=== PATIENT | female | born 1995 | race Caucasian/White ===

== ENCOUNTER 2016-05-28 22:28 | Observation (INO) | payer MEDICAID ==
[~2016-05-28] VITALS: Ht 162.6 cm; Wt 74.8 kg
[2016-05-28 23:50] LABS: Urine RBC None Seen /hpf (0 - 4)
[2016-05-28 23:56] LABS: Basophils # (auto) 0.2 uL; Basophils % (auto) 1.5 % (0.0-2.0); Eosinophils # (auto) 0 uL; Eosinophils % (auto) 0.2 % (0.0-7.0); Hematocrit 39.9 % (36.0-46.0); Lymphocytes # (auto) 1.8 uL; Lymphocytes % (auto) 15.8 % (10.0-50.0); Mean Corpuscular Hemoglobin 27.9 pg (28.0-32.0); Mean Corpuscular Hgb Conc. 32.6 g/dL (32.0-36.0); Mean Corpuscular Volume 85.4 fL (80.0-100.0); Mean Platelet Volume 8.1 fL (7.4-10.4); Monocytes # (auto) 1.2 uL; Monocytes % (auto) 11.1 % (0.0-12.0); Neutrophils # (auto) 7.9 uL; Neutrophils % (auto) 71.4 % (37.0-80.0); Platelet Count (auto) 371 10^3/uL (140-450); White Blood Cell 11.1 10^3/uL (4.4-10.8)
[2016-05-29 00:04] LABS: Albumin 4.1 g/dL (3.4-5.0); Anion Gap 11 (5-15); Aspartate Aminotransferase 15 U/L (15-37); BUN/Creatinine Ratio 12.3; Blood Urea Nitrogen 10 mg/dL (7-18); Calcium 8.8 mg/dL (8.5-10.1); Carbon Dioxide 25 mmol/L (21-32); Chloride 104 mmol/L (98-107); GFR African American 117 mL/min; GFR Non-African American 97 mL/min; Glucose 74 mg/dL (74-106); Magnesium 2.1 mg/dL (1.6-2.6); Potassium 3.5 mmol/L (3.5-5.1); Sodium 140 mmol/L (136-145)
[2016-05-29 00:04] LABS: Urine Bilirubin Negative (Negative); Urine Blood Negative /uL (Negative); Urine Color Colorless (Yellow); Urine Glucose Normal (Normal); Urine Ketone TRACE (Negative); Urine Nitrite Negative (Negative); Urine Squamous Epithelial Cell FEW /hpf (<5); Urine Urobilinogen Normal (Negative)
[2016-05-29 00:05] LABS: INR 1.07 (0.9-1.15)
[2016-05-29 00:08] LABS: Alkaline Phosphatase 103 U/L (45-117); Bilirubin, Total 0.8 mg/dL (0.2-1.0); Total Protein 7.7 g/dL (6.4-8.2)
[2016-05-29] MEDS ORDERED: OLANZapine 5 MG TAB PO ONE (03:45)
[2016-05-29] MEDS ORDERED: OLANZapine 5 MG TAB PO PRN (08:45)
[2016-05-29 10:48] VITALS: BP 97/56
== END 2016-05-29 10:53 | disposition short-term general hospital (02) | DRG 751 ==
LOC: ER 22:28 → EDBD 22:28 → OVERFLOW 23:50 → ER 05-29 10:53
PROVIDERS: ADMIT Emergency Medicine; ATTEND Emergency Medicine
DX: F23 Brief psychotic disorder (principal); F32.1 Major depressive disorder, single episode, moderate; Z82.49 Family history of ischemic heart disease and other diseases of the circulatory system; Z83.3 Family history of diabetes mellitus; R53.1 Weakness; F41.9 Anxiety disorder, unspecified
CPT/HCPCS: 36415; 71010; 80053; 80320; 81001; 81025; 83735; 84484; 85025; 85379; 85610; 85730; 93005; 99285; G0378; G0434

== ENCOUNTER 2017-07-28 05:01 | Inpatient (IN) | payer MEDICAID ==
[~2017-07-28] VITALS: Ht 160 cm; Wt 63.0 kg
[2017-07-28] MEDS ORDERED: SODIUM CHLORIDE 0.9% 1,000 ML IVB ONE (06:26)
[2017-07-28] MEDS ORDERED: ACETYLCYSTEINE ORAL for CIN 20%(200MG/ML) 4ML PO ONE ×2 (07:00→11:15)
[2017-07-28 07:38] LABS: Basophils # (auto) 0 uL; Basophils % (auto) 0.7 % (0.0-2.0); Eosinophils # (auto) 0 uL; Eosinophils % (auto) 0.6 % (0.0-7.0); Hematocrit 38.4 % (36.0-46.0); Hemoglobin 12.7 g/dL (12.2-16.2); Lymphocytes # (auto) 1.6 uL; Lymphocytes % (auto) 23.3 % (10.0-50.0); Mean Corpuscular Hemoglobin 30.4 pg (28.0-32.0); Mean Corpuscular Volume 91.9 fL (80.0-100.0); Monocytes # (auto) 0.9 uL; Monocytes % (auto) 13.2 % (0.0-12.0); Neutrophils # (auto) 4.2 uL; Neutrophils % (auto) 62.2 % (37.0-80.0); Nucleated Red Blood Cells % 0.1 %; Platelet Count (auto) 258 10^3/uL (140-450); Red Blood Cells 4.18 10^6/uL (4.0-5.20); Red Cell Distribution Width 12.3 % (11.8-14.3); White Blood Cell 6.7 10^3/uL (4.4-10.8)
[2017-07-28 07:56] LABS: Salicylate < 1.7 mg/dL (2.8-20.0)
[2017-07-28 07:57] LABS: Alanine Aminotransferase 15 U/L (13-56); Albumin 3.1 g/dL (3.4-5.0); Anion Gap 9 (5-15); Aspartate Aminotransferase 11 U/L (15-37); BUN/Creatinine Ratio 15.1; Blood Alcohol < 3.0 mg/dL (0-5); Blood Urea Nitrogen 13 mg/dL (7-18); Calcium 7.8 mg/dL (8.5-10.1); Carbon Dioxide 23 mmol/L (21-32); Chloride 112 mmol/L (98-107); GFR African American 108 mL/min; GFR Non-African American 89 mL/min; Glucose 93 mg/dL (74-106); Magnesium 1.7 mg/dL (1.6-2.6); Potassium 4.5 mmol/L (3.5-5.1); Sodium 144 mmol/L (136-145)
[2017-07-28 08:03] LABS: Urine Bacteria FEW /hpf (None Seen); Urine Blood Negative /uL (Negative); Urine Hyaline Cast MOD /lpf (0 - 2); Urine Mucus FEW (None Seen); Urine WBC 9 /hpf (0 - 5)
[2017-07-28 08:04] LABS: Alkaline Phosphatase 69 U/L (45-117); Bilirubin, Total 0.3 mg/dL (0.2-1.0); Total Protein 6.3 g/dL (6.4-8.2)
[2017-07-28 08:08] LABS: INR 1.01 (0.9-1.15); Partial Thromboplastin Time 25.2 sec (23.78-33.04); Prothrombin Time 10.8 sec (9.27-12.13)
[2017-07-28 08:12] LABS: Acetaminophen 449.9 ug/mL (10-30)
[2017-07-28] MEDS ORDERED: ONDANSETRON HCL 4 MG/2 ML VIAL ONE (08:20)
[2017-07-28] MEDS ORDERED: ONDANSETRON HCL 4 MG/2 ML VIAL IV ONE (08:30)
[2017-07-28 08:36] LABS: Amphetamine Screen, Urine NEGATIVE (NEGATIVE); Barbiturate Scree,Urine NEGATIVE (NEGATIVE); Benzodiazephine Screen, Urine NEGATIVE (NEGATIVE); Cannabinoid Screen, Urine POSITIVE (NEGATIVE); Cocaine Screen, Urine NEGATIVE (NEGATIVE); Opiate Scree,Urine NEGATIVE (NEGATIVE); Phencyclidine Screen, Urine NEGATIVE (NEGATIVE)
[2017-07-28 10:33] LABS: BUN/Creatinine Ratio 12.5; Calcium 7.5 mg/dL (8.5-10.1); Potassium 4.4 mmol/L (3.5-5.1)
[2017-07-28 10:36] LABS: Bilirubin, Total 0.3 mg/dL (0.2-1.0); Total Protein 6.1 g/dL (6.4-8.2)
[2017-07-28] MEDS ORDERED: SODIUM CHLORIDE 0.9% 1,000 ML IV ONE ×2 (11:12)
[2017-07-28] MEDS ORDERED: D5W 5% IV ONE ×2 (11:15→12:15)
[2017-07-28] MEDS ORDERED: ACETYLCYSTEINE IV ONE ×2 (11:15→12:15)
[2017-07-28] MEDS ORDERED: SODIUM BICARBONATE 8.4% INJ 50ML SYRINGE ONE (11:24)
[2017-07-28] MEDS ORDERED: SODIUM BICARBONATE 8.4 % INJ 50ML VIAL IV ONE ×2 (11:30)
[2017-07-28] MEDS ORDERED: PROMETHAZINE HCL 25 MG/ML 1ML ONE (12:42)
[2017-07-28] MEDS ORDERED: PROMETHAZINE HCL 25 MG/ML 1ML IV ONE (12:45)
[2017-07-28] MEDS ORDERED: LORazepam 2MG/ML-1ML VIAL IV PRN (13:45)
[2017-07-28] MEDS: SODIUM CHLORIDE 0.9% 1,000 ML IV SCH ×2 (13:49→22:34)
[2017-07-28] MEDS ORDERED: cefTRIAXone 1GM/10ml IVPUSH 10 ML IV ONE (14:00)
[2017-07-28] MEDS ORDERED: NITROGLYCERIN 0.4 MG SL TAB SL PRN (14:00)
[2017-07-28] MEDS ORDERED: MORPHINE SULF INJ 2 MG/ML SYRINGE 1ML IV PRN ×2 (14:00)
[2017-07-28] MEDS ORDERED: TEMAZEPAM 15 MG CAP PO PRN (14:00)
[2017-07-28] MEDS ORDERED: ACETYLCYSTEINE 20%(200MG/ML) SOLN 30ML PO ONE (14:00)
[2017-07-28] MEDS: ONDANSETRON HCL 4 MG/2 ML VIAL IV PRN (14:32)
[2017-07-28] MEDS: D5W 5% IV SCH (17:00)
[2017-07-28] MEDS: ACETYLCYSTEINE IV SCH (17:00)
[2017-07-28] MEDS: BOOST PLUS 8 ounce PO SCH (18:15)
[2017-07-28] MEDS: FAMOTIDINE 20 MG TAB PO SCH (22:34)
[2017-07-29 06:25] LABS: Basophils # (auto) 0 uL; Basophils % (auto) 0.4 % (0.0-2.0); Eosinophils # (auto) 0 uL; Hematocrit 34.9 % (36.0-46.0); Hemoglobin 11.8 g/dL (12.2-16.2); Lymphocytes # (auto) 2.1 uL; Lymphocytes % (auto) 22.1 % (10.0-50.0); Mean Corpuscular Hemoglobin 30.7 pg (28.0-32.0); Mean Corpuscular Hgb Conc. 33.9 g/dL (32.0-36.0); Mean Corpuscular Volume 90.7 fL (80.0-100.0); Monocytes % (auto) 10.4 % (0.0-12.0); Neutrophils # (auto) 6.4 uL; Neutrophils % (auto) 67.1 % (37.0-80.0); Nucleated Red Blood Cells % 0.1 %; Platelet Count (auto) 241 10^3/uL (140-450); Red Blood Cells 3.84 10^6/uL (4.0-5.20); Red Cell Distribution Width 12.5 % (11.8-14.3); White Blood Cell 9.6 10^3/uL (4.4-10.8)
[2017-07-29] MEDS: BOOST PLUS 8 ounce PO SCH ×3 (08:26→18:00)
[2017-07-29] MEDS ORDERED: DIVA500T4 PO (08:48)
[2017-07-29 09:00] VITALS: BP 120/65
[2017-07-29] MEDS: cefTRIAXone 1GM/10ml IVPUSH 10 ML IV SCH (09:00)
[2017-07-29 09:04] LABS: Albumin 2.8 g/dL (3.4-5.0); BUN/Creatinine Ratio 4.9; Calcium 8.2 mg/dL (8.5-10.1); Potassium 3.3 mmol/L (3.5-5.1)
[2017-07-29 09:07] LABS: Bilirubin, Total 0.7 mg/dL (0.2-1.0); Total Protein 5.8 g/dL (6.4-8.2)
[2017-07-29] MEDS: FAMOTIDINE 20 MG TAB PO SCH ×2 (10:00→21:39)
[2017-07-29] MEDS: MULTIPLE VITAMIN TAB PO SCH (10:00)
[2017-07-29] MEDS ORDERED: POTASSIUM CHL 10 Meq TABLET PO ONE (10:30)
[2017-07-29 11:45] VITALS: BP 105/63
[2017-07-29] MEDS: SODIUM CHLORIDE 0.9% 1,000 ML IV SCH ×3 (12:49→23:10)
[2017-07-29 13:00] VITALS: BP 115/61
[2017-07-29] MEDS: ACETYLCYSTEINE IV SCH (13:00)
[2017-07-29] MEDS: D5W 5% IV SCH (13:00)
[2017-07-29] MEDS ORDERED: LEV50T GT (14:11)
[2017-07-29] MEDS ORDERED: SERT25TA84 PO (14:11)
[2017-07-29] MEDS ORDERED: ARIP2TAB PO (14:11)
[2017-07-29 22:00] VITALS: BP 120/79
[2017-07-29] MEDS: ONDANSETRON HCL 4 MG/2 ML VIAL IV PRN (23:11)
[2017-07-30 05:00] VITALS: BP 115/68
[2017-07-30 06:02] LABS: Basophils # (auto) 0 uL; Basophils % (auto) 0.7 % (0.0-2.0); Eosinophils # (auto) 0 uL; Eosinophils % (auto) 0.8 % (0.0-7.0); Hematocrit 34.1 % (36.0-46.0); Hemoglobin 11.6 g/dL (12.2-16.2); Lymphocytes # (auto) 2.3 uL; Lymphocytes % (auto) 35.3 % (10.0-50.0); Mean Corpuscular Hemoglobin 30.8 pg (28.0-32.0); Mean Corpuscular Volume 90.7 fL (80.0-100.0); Monocytes # (auto) 0.7 uL; Monocytes % (auto) 10.7 % (0.0-12.0); Neutrophils # (auto) 3.4 uL; Neutrophils % (auto) 52.5 % (37.0-80.0); Nucleated Red Blood Cells % 0.1 %; Platelet Count (auto) 234 10^3/uL (140-450); Red Blood Cells 3.76 10^6/uL (4.0-5.20); Red Cell Distribution Width 12.6 % (11.8-14.3); White Blood Cell 6.4 10^3/uL (4.4-10.8)
[2017-07-30 06:27] LABS: Alanine Aminotransferase 39 U/L (13-56); Albumin 2.5 g/dL (3.4-5.0); Anion Gap 8 (5-15); Blood Urea Nitrogen < 1 mg/dL (7-18); Calcium 7.9 mg/dL (8.5-10.1); Carbon Dioxide 23 mmol/L (21-32); Chloride 114 mmol/L (98-107); GFR African American 207 mL/min; GFR Non-African American 171 mL/min; Glucose 89 mg/dL (74-106); Sodium 145 mmol/L (136-145)
[2017-07-30 06:30] LABS: Potassium 2.9 mmol/L (3.5-5.1)
[2017-07-30 06:33] LABS: Alkaline Phosphatase 53 U/L (45-117); Aspartate Aminotransferase 24 U/L (15-37); Bilirubin, Total 0.5 mg/dL (0.2-1.0); Total Protein 5.2 g/dL (6.4-8.2)
[2017-07-30] MEDS: BOOST PLUS 8 ounce PO SCH ×3 (08:00→18:00)
[2017-07-30 09:00] VITALS: BP 120/66
[2017-07-30] MEDS: cefTRIAXone 1GM/10ml IVPUSH 10 ML IV SCH (10:07)
[2017-07-30] MEDS: FAMOTIDINE 20 MG TAB PO SCH ×2 (10:08→21:21)
[2017-07-30] MEDS: MULTIPLE VITAMIN TAB PO SCH (10:08)
[2017-07-30] MEDS: SODIUM CHLORIDE 0.9% 1,000 ML IV SCH ×3 (10:09→20:10)
[2017-07-30 13:00] VITALS: BP 116/69
[2017-07-30] MEDS ORDERED: POTASSIUM CHLORIDE 8 MEQ TAB PO ONE (13:00)
[2017-07-30 17:00] VITALS: BP 122/74
[2017-07-30 18:37] LABS: Calcium 8.5 mg/dL (8.5-10.1); Potassium 3.7 mmol/L (3.5-5.1)
[2017-07-30 20:00] VITALS: BP 119/65
[2017-07-30] MEDS: DOCUSATE SOD 100 MG CAP PO PRN (21:21)
[2017-07-30 21:46] VITALS: BP 119/65
[2017-07-31] MEDS ORDERED: QUEtiapine FUMARATE 25 MG TAB PO ONE (01:45)
[2017-07-31 05:03] VITALS: BP 111/52
[2017-07-31] MEDS: SODIUM CHLORIDE 0.9% 1,000 ML IV SCH ×2 (05:49→17:45)
[2017-07-31 07:15] LABS: Basophils # (auto) 0 uL; Basophils % (auto) 0.6 % (0.0-2.0); Eosinophils # (auto) 0.1 uL; Eosinophils % (auto) 2.3 % (0.0-7.0); Hematocrit 33.6 % (36.0-46.0); Hemoglobin 11.3 g/dL (12.2-16.2); Lymphocytes % (auto) 50.2 % (10.0-50.0); Mean Corpuscular Hemoglobin 30.5 pg (28.0-32.0); Mean Corpuscular Hgb Conc. 33.7 g/dL (32.0-36.0); Mean Corpuscular Volume 90.4 fL (80.0-100.0); Monocytes # (auto) 0.6 uL; Monocytes % (auto) 9.4 % (0.0-12.0); Neutrophils # (auto) 2.2 uL; Neutrophils % (auto) 37.5 % (37.0-80.0); Nucleated Red Blood Cells % 0.1 %; Platelet Count (auto) 224 10^3/uL (140-450); Red Blood Cells 3.72 10^6/uL (4.0-5.20); Red Cell Distribution Width 12.5 % (11.8-14.3)
[2017-07-31 07:43] LABS: Cholesterol 96 mg/dL (< 200); HDL Cholesterol 41 mg/dL (40-59); LDL Cholesterol 51 mg/dL (< 100); Triglycerides 61 mg/dL (< 150)
[2017-07-31 07:47] LABS: Albumin 2.7 g/dL (3.4-5.0); BUN/Creatinine Ratio 4.8; Bilirubin, Total 0.6 mg/dL (0.2-1.0); Total Protein 5.2 g/dL (6.4-8.2)
[2017-07-31 07:57] LABS: Potassium 2.9 mmol/L (3.5-5.1)
[2017-07-31] MEDS: BOOST PLUS 8 ounce PO SCH ×3 (08:00→18:00)
[2017-07-31] MEDS ORDERED: POTASSIUM CHLORIDE 8 MEQ TAB PO ONE (08:45)
[2017-07-31 09:00] VITALS: BP 118/64
[2017-07-31] MEDS: cefTRIAXone 1GM/10ml IVPUSH 10 ML IV SCH (10:18)
[2017-07-31] MEDS: FAMOTIDINE 20 MG TAB PO SCH ×2 (10:19→21:35)
[2017-07-31] MEDS: MULTIPLE VITAMIN TAB PO SCH (10:20)
[2017-07-31 13:00] VITALS: BP 124/74
[2017-07-31] MEDS ORDERED: LEVOTHYROXINE SODIUM 50 MCG TAB PO ONE (15:30)
[2017-07-31 18:57] LABS: BUN/Creatinine Ratio 3.8; Calcium 8.3 mg/dL (8.5-10.1); Potassium 3.4 mmol/L (3.5-5.1)
[2017-07-31 20:00] VITALS: BP 117/64
[2017-07-31] MEDS: QUEtiapine FUMARATE 100 MG TAB PO SCH (21:35)
[2017-07-31] MEDS: DOCUSATE SOD 100 MG CAP PO PRN (21:35)
[2017-07-31 22:00] VITALS: BP 117/74
[2017-08-01] MEDS: SODIUM CHLORIDE 0.9% 1,000 ML IV SCH ×3 (01:22→18:06)
[2017-08-01 05:00] VITALS: BP 115/70
[2017-08-01 06:26] LABS: Basophils # (auto) 0 uL; Basophils % (auto) 0.5 % (0.0-2.0); Eosinophils # (auto) 0.2 uL; Eosinophils % (auto) 2.9 % (0.0-7.0); Hematocrit 35.2 % (36.0-46.0); Hemoglobin 11.9 g/dL (12.2-16.2); Lymphocytes # (auto) 2.7 uL; Lymphocytes % (auto) 41.3 % (10.0-50.0); Mean Corpuscular Hemoglobin 30.8 pg (28.0-32.0); Mean Corpuscular Volume 90.6 fL (80.0-100.0); Monocytes # (auto) 0.5 uL; Monocytes % (auto) 7.2 % (0.0-12.0); Neutrophils # (auto) 3.2 uL; Neutrophils % (auto) 48.1 % (37.0-80.0); Nucleated Red Blood Cells % 0.1 %; Platelet Count (auto) 240 10^3/uL (140-450); Red Blood Cells 3.88 10^6/uL (4.0-5.20); Red Cell Distribution Width 12.7 % (11.8-14.3); White Blood Cell 6.6 10^3/uL (4.4-10.8)
[2017-08-01] MEDS: LEVOTHYROXINE SODIUM 50 MCG TAB PO SCH (06:32)
[2017-08-01 06:44] LABS: BUN/Creatinine Ratio 7.7; Calcium 7.9 mg/dL (8.5-10.1); Potassium 3.3 mmol/L (3.5-5.1)
[2017-08-01] MEDS: BOOST PLUS 8 ounce PO SCH ×3 (07:20→18:05)
[2017-08-01 08:55] VITALS: BP 124/67
[2017-08-01] MEDS ORDERED: POTASSIUM CHLORIDE 8 MEQ TAB PO ONE (09:15)
[2017-08-01] MEDS: cefTRIAXone 1GM/10ml IVPUSH 10 ML IV SCH (10:20)
[2017-08-01] MEDS: FAMOTIDINE 20 MG TAB PO SCH ×2 (10:21→21:14)
[2017-08-01] MEDS: MULTIPLE VITAMIN TAB PO SCH (10:21)
[2017-08-01 13:00] VITALS: BP 117/81
[2017-08-01 17:34] VITALS: BP 119/67
[2017-08-01] MEDS: QUEtiapine FUMARATE 100 MG TAB PO SCH (21:14)
[2017-08-01 22:00] VITALS: BP 118/73
[2017-08-02] MEDS: SODIUM CHLORIDE 0.9% 1,000 ML IV SCH ×2 (01:22→09:43)
[2017-08-02 05:00] VITALS: BP 115/66
[2017-08-02] MEDS: LEVOTHYROXINE SODIUM 50 MCG TAB PO SCH (06:04)
[2017-08-02 06:36] LABS: Basophils # (auto) 0 uL; Basophils % (auto) 0.6 % (0.0-2.0); Eosinophils # (auto) 0.2 uL; Eosinophils % (auto) 2.5 % (0.0-7.0); Hematocrit 34.2 % (36.0-46.0); Hemoglobin 11.6 g/dL (12.2-16.2); Lymphocytes # (auto) 2.6 uL; Lymphocytes % (auto) 40.7 % (10.0-50.0); Mean Corpuscular Hemoglobin 30.7 pg (28.0-32.0); Mean Corpuscular Hgb Conc. 33.8 g/dL (32.0-36.0); Mean Corpuscular Volume 90.7 fL (80.0-100.0); Monocytes # (auto) 0.6 uL; Monocytes % (auto) 8.6 % (0.0-12.0); Neutrophils # (auto) 3.1 uL; Neutrophils % (auto) 47.6 % (37.0-80.0); Nucleated Red Blood Cells % 0.1 %; Platelet Count (auto) 238 10^3/uL (140-450); Red Blood Cells 3.77 10^6/uL (4.0-5.20); Red Cell Distribution Width 12.5 % (11.8-14.3); White Blood Cell 6.5 10^3/uL (4.4-10.8)
[2017-08-02 06:48] LABS: BUN/Creatinine Ratio 8.6; Potassium 3.6 mmol/L (3.5-5.1)
[2017-08-02 08:00] VITALS: BP 102/70
[2017-08-02] MEDS: BOOST PLUS 8 ounce PO SCH ×3 (08:00→18:00)
[2017-08-02 09:00] VITALS: BP 102/70
[2017-08-02] MEDS: MULTIPLE VITAMIN TAB PO SCH (09:28)
[2017-08-02] MEDS: FAMOTIDINE 20 MG TAB PO SCH ×2 (09:28→22:00)
[2017-08-02] MEDS: cefTRIAXone 1GM/10ml IVPUSH 10 ML IV SCH (09:28)
[2017-08-02 13:00] VITALS: BP 107/87
[2017-08-02 17:05] VITALS: BP 109/64
[2017-08-02 22:00] VITALS: BP 105/61
[2017-08-02] MEDS: QUEtiapine FUMARATE 100 MG TAB PO SCH (22:05)
[2017-08-03 05:00] VITALS: BP 89/71
[2017-08-03] MEDS: LEVOTHYROXINE SODIUM 50 MCG TAB PO SCH (06:14)
[2017-08-03 08:00] VITALS: BP 99/66
[2017-08-03 09:00] VITALS: BP 99/60
[2017-08-03] MEDS: FAMOTIDINE 20 MG TAB PO SCH ×2 (11:26→21:28)
[2017-08-03] MEDS: MULTIPLE VITAMIN TAB PO SCH (11:26)
[2017-08-03] MEDS: BOOST PLUS 8 ounce PO SCH ×3 (11:27→19:08)
[2017-08-03 13:00] VITALS: BP 105/51
[2017-08-03 17:00] VITALS: BP 109/62
[2017-08-03] MEDS: QUEtiapine FUMARATE 100 MG TAB PO SCH (21:28)
[2017-08-03 22:00] VITALS: BP 113/68
[2017-08-04 05:20] VITALS: BP 91/46
[2017-08-04] MEDS: LEVOTHYROXINE SODIUM 50 MCG TAB PO SCH (06:15)
[2017-08-04 08:00] VITALS: BP 105/54
[2017-08-04 09:00] VITALS: BP 105/54
[2017-08-04] MEDS: FAMOTIDINE 20 MG TAB PO SCH ×2 (09:31→21:45)
[2017-08-04] MEDS: MULTIPLE VITAMIN TAB PO SCH (09:31)
[2017-08-04] MEDS: BOOST PLUS 8 ounce PO SCH ×3 (09:32→18:05)
[2017-08-04 13:00] VITALS: BP 107/68
[2017-08-04 17:00] VITALS: BP 92/52
[2017-08-04 21:32] VITALS: BP 104/54
[2017-08-04] MEDS: QUEtiapine FUMARATE 100 MG TAB PO SCH (21:45)
[2017-08-05 05:39] VITALS: BP 88/47
[2017-08-05] MEDS: LEVOTHYROXINE SODIUM 50 MCG TAB PO SCH (06:12)
[2017-08-05 06:16] VITALS: BP 91/45
[2017-08-05] MEDS: DOCUSATE SOD 100 MG CAP PO PRN (08:17)
[2017-08-05] MEDS: BOOST PLUS 8 ounce PO SCH ×3 (08:17→18:04)
[2017-08-05] MEDS: FAMOTIDINE 20 MG TAB PO SCH ×2 (08:17→21:02)
[2017-08-05] MEDS: MULTIPLE VITAMIN TAB PO SCH (08:17)
[2017-08-05] MEDS: ORTHO TRICYCLEN PO SCH (08:18)
[2017-08-05 08:23] VITALS: BP 87/52
[2017-08-05 13:00] VITALS: BP 101/54
[2017-08-05] MEDS: QUEtiapine FUMARATE 100 MG TAB PO SCH (21:02)
[2017-08-05 22:00] VITALS: BP 101/71
[2017-08-06 05:00] VITALS: BP 102/52
[2017-08-06] MEDS: LEVOTHYROXINE SODIUM 50 MCG TAB PO SCH (06:39)
[2017-08-06] MEDS: FAMOTIDINE 20 MG TAB PO SCH ×2 (08:42→21:24)
[2017-08-06] MEDS: MULTIPLE VITAMIN TAB PO SCH (08:43)
[2017-08-06] MEDS: DOCUSATE SOD 100 MG CAP PO PRN (08:43)
[2017-08-06] MEDS: ORTHO TRICYCLEN PO SCH (08:44)
[2017-08-06] MEDS: BOOST PLUS 8 ounce PO SCH ×3 (08:44→18:31)
[2017-08-06 09:00] VITALS: BP 108/56
[2017-08-06 14:28] VITALS: BP 96/64
[2017-08-06 16:38] VITALS: BP 96/63
[2017-08-06] MEDS ORDERED: TEMAZEPAM 15 MG CAP PO PRN (18:00)
[2017-08-06] MEDS ORDERED: LORazepam 2MG/ML-1ML VIAL IV PRN (18:00)
[2017-08-06 20:00] VITALS: BP 116/58
[2017-08-06] MEDS: QUEtiapine FUMARATE 100 MG TAB PO SCH (21:24)
[2017-08-06] MEDS ORDERED: BISACODYL 5 MG EC TAB PO ONE (22:00)
[2017-08-07 05:05] VITALS: BP 115/60
[2017-08-07] MEDS: LEVOTHYROXINE SODIUM 50 MCG TAB PO SCH (06:47)
[2017-08-07] MEDS: BOOST PLUS 8 ounce PO SCH ×2 (08:00→12:03)
[2017-08-07 09:00] VITALS: BP 111/59
[2017-08-07] MEDS: MULTIPLE VITAMIN TAB PO SCH (09:14)
[2017-08-07] MEDS: FAMOTIDINE 20 MG TAB PO SCH (09:14)
[2017-08-07] MEDS: ORTHO TRICYCLEN PO SCH (09:16)
[2017-08-07 12:49] VITALS: BP 100/66
[2017-08-07] MEDS ORDERED: MULTTAB99 PO (13:53)
[2017-08-07] MEDS ORDERED: LEV50T PO (13:53)
[2017-08-07] MEDS ORDERED: QUET100T38 PO (13:53)
[2017-08-07 16:21] VITALS: BP 111/59
[2017-08-07 16:40] VITALS: BP 104/63
== END 2017-08-07 17:45 | disposition home or self-care (01) | DRG 812 ==
LOC: ER 05:01 → TELE 05:02 → TELE-WESTW 07-29 07:46 → WEST WING 08-03 14:49
PROVIDERS: ADMIT Internal Medicine; ATTEND Internal Medicine
DX: T39.1X2A Poisoning by 4-Aminophenol derivatives, intentional self-harm, initial encounter (principal); R45.851 Suicidal ideations; E44.0 Moderate protein-calorie malnutrition; E83.51 Hypocalcemia; E03.9 Hypothyroidism, unspecified; F31.30 Bipolar disorder, current episode depressed, mild or moderate severity, unspecified; K59.00 Constipation, unspecified; F43.10 Post-traumatic stress disorder, unspecified; N18.2 Chronic kidney disease, stage 2 (mild); N39.0 Urinary tract infection, site not specified; E87.6 Hypokalemia; Z82.49 Family history of ischemic heart disease and other diseases of the circulatory system; Z83.3 Family history of diabetes mellitus; Z91.5 Personal history of self-harm; Z79.899 Other long term (current) drug therapy; Y92.89 Other specified places as the place of occurrence of the external cause; Z68.24 Body mass index [BMI] 24.0-24.9, adult
CPT/HCPCS: 36415; 80048; 80053; 80061; 80307; 80320; 80329; 81001; 81025; 82962; 83036; 83735; 84439; 84443; 85025; 85610; 85730; 87086; 93005; 94761; 96360; J2405; J7060

== ENCOUNTER 2020-05-23 13:25 | Emergency (ER) | payer MEDICARE, MEDICAID ==
[~2020-05-23] VITALS: Ht 160 cm; Wt 54.4 kg
[~2020-05-23 13:25] MED LIST: LEV50T GT; LEV50T PO; MULTTAB99 PO; QUET100T38 PO
[2020-05-23 14:09] LABS: Urine WBC None Seen /hpf (0 - 5)
[2020-05-23 14:24] LABS: Urine Bacteria NONE SEEN /hpf (None Seen); Urine Blood Negative /uL (Negative)
[2020-05-23 14:38] LABS: Alcohol, Urine < 3.0 mg/dL (0-10); Amphetamine Screen, Urine NEGATIVE (NEGATIVE); Barbiturate Scree,Urine NEGATIVE (NEGATIVE); Benzodiazephine Screen, Urine NEGATIVE (NEGATIVE); Cannabinoid Screen, Urine NEGATIVE (NEGATIVE); Cocaine Screen, Urine NEGATIVE (NEGATIVE); Opiate Scree,Urine NEGATIVE (NEGATIVE); Phencyclidine Screen, Urine NEGATIVE (NEGATIVE)
[2020-05-23 14:48] LABS: Basophils # (auto) 0 10 ^3/uL (0-0.2); Basophils % (auto) 0.4 % (0.0-2.0); Eosinophils # (auto) 0 10 ^3/uL (0-0.8); Eosinophils % (auto) 0.1 % (0.0-7.0); Hematocrit 39.2 % (36.0-46.0); Hemoglobin 13.1 g/dL (12.2-16.2); Lymphocytes # (auto) 1.6 10 ^3/uL (0.4-5.4); Lymphocytes % (auto) 21.9 % (10.0-50.0); Mean Corpuscular Hemoglobin 29.3 pg (28.0-32.0); Mean Corpuscular Hgb Conc. 33.4 g/dL (32.0-36.0); Mean Corpuscular Volume 87.9 fL (80.0-100.0); Monocytes # (auto) 0.8 10 ^3/uL (0-1.3); Monocytes % (auto) 10.2 % (0.0-12.0); Neutrophils % (auto) 67.4 % (37.0-80.0); Platelet Count (auto) 301 10^3/uL (140-450); Red Blood Cells 4.46 10^6/uL (4.0-5.20); Red Cell Distribution Width 13.2 % (11.8-14.3); White Blood Cell 7.4 10^3/uL (4.4-10.8)
[2020-05-23 15:07] LABS: Albumin 3.7 g/dL (3.4-5.0); Calcium 9.1 mg/dL (8.5-10.1); Magnesium 2.1 mg/dL (1.6-2.6); Potassium 3.5 mmol/L (3.5-5.1)
[2020-05-23 15:10] LABS: BUN/Creatinine Ratio 16.9; Bilirubin, Total 0.8 mg/dL (0.2-1.0); Total Protein 7.2 g/dL (6.4-8.2)
[2020-05-24] MEDS ORDERED: LORazepam 0.5 MG TAB ONE (01:16)
[2020-05-24] MEDS ORDERED: LORazepam 0.5 MG TAB PO ONE (02:15)
[2020-05-24] MEDS ORDERED: hydrOXYzine 25 MG TAB or CAP PO PRN (15:15)
[2020-05-24 16:59] VITALS: BP 115/75
[2020-05-24] MEDS ORDERED: LITHIUM CARBONATE 300 MG TAB PO SCH (22:00)
[2020-05-25] MEDS ORDERED: LEVOTHYROXINE SODIUM 88 MCG TAB PO SCH (07:00)
== END 2020-05-24 18:33 | disposition short-term general hospital (02) ==
LOC: ER 13:25
DX: R45.851 Suicidal ideations (principal); F31.9 Bipolar disorder, unspecified; F41.9 Anxiety disorder, unspecified; F20.9 Schizophrenia, unspecified; Z32.02 Encounter for pregnancy test, result negative; Z20.822 Contact with and (suspected) exposure to COVID-19
CPT/HCPCS: 36415; 80053; 80307; 81001; 83735; 84443; 84702; 85025; 87426; 99285; C9803; U0003

== ENCOUNTER 2021-03-12 12:40 | Emergency (ER) | payer MEDICARE, MEDICAID ==
[~2021-03-12] VITALS: Ht 162.6 cm; Wt 56.7 kg
[2021-03-12 13:16] VITALS: BP 102/72
[2021-03-12 14:08] LABS: Basophils # (auto) 0.1 10 ^3/uL (0-0.2); Basophils % (auto) 0.4 % (0.0-2.0); Eosinophils # (auto) 0 10 ^3/uL (0-0.8); Hematocrit 43.4 % (36.0-46.0); Hemoglobin 14.2 g/dL (12.2-16.2); Lymphocytes # (auto) 0.1 10 ^3/uL (0.4-5.4); Lymphocytes % (auto) 0.9 % (10.0-50.0); Mean Corpuscular Hemoglobin 29.1 pg (28.0-32.0); Mean Corpuscular Hgb Conc. 32.8 g/dL (32.0-36.0); Mean Corpuscular Volume 88.7 fL (80.0-100.0); Monocytes # (auto) 0.4 10 ^3/uL (0-1.3); Monocytes % (auto) 2.9 % (0.0-12.0); Neutrophils # (auto) 14.6 10 ^3/uL (1.6-8.6); Neutrophils % (auto) 95.8 % (37.0-80.0); Red Blood Cells 4.89 10^6/uL (4.0-5.20); Red Cell Distribution Width 13.5 % (11.8-14.3); White Blood Cell 15.2 10^3/uL (4.4-10.8)
[2021-03-12 14:32] LABS: Albumin 3.5 g/dL (3.4-5.0); Calcium 8.6 mg/dL (8.5-10.1); Potassium 3.7 mmol/L (3.5-5.1)
[2021-03-12 14:35] LABS: BUN/Creatinine Ratio 22.7; Bilirubin, Total 0.7 mg/dL (0.2-1.0)
[2021-03-12] MEDS ORDERED: ONDANSETRON ODT 4 MG TAB PO ONE (15:30)
[2021-03-12 15:33] LABS: Urine Bacteria NONE SEEN /hpf (None Seen); Urine Blood Negative /uL (Negative); Urine Mucus FEW (None Seen); Urine WBC <1 /hpf (0 - 5)
[2021-03-12] MEDS ORDERED: DICY10CA PO (16:26)
[2021-03-12] MEDS ORDERED: ONDA-144 PO (16:26)
== END 2021-03-12 16:35 | disposition home or self-care (01) ==
LOC: ER 12:40
DX: K52.9 Noninfective gastroenteritis and colitis, unspecified (principal); Z20.822 Contact with and (suspected) exposure to COVID-19
CPT/HCPCS: 36415; 74176; 80053; 81001; 85025; 87426; 99284; Q0162

== ENCOUNTER 2021-08-17 13:29 | Emergency (ER) | payer MEDICARE, MEDICAID ==
[~2021-08-17] VITALS: Ht 162.6 cm; Wt 54.4 kg
[~2021-08-17 13:29] MED LIST changes: +DICY10CA PO; +ONDA-144 PO
[2021-08-17 14:02] VITALS: BP 98/77
== END 2021-08-17 14:26 | disposition home or self-care (01) ==
LOC: ER 13:29
DX: S50.12XA Contusion of left forearm, initial encounter (principal); W18.39XA Other fall on same level, initial encounter; Y93.89 Activity, other specified; Y92.89 Other specified places as the place of occurrence of the external cause; Y99.8 Other external cause status
CPT/HCPCS: 73110

== ENCOUNTER 2022-06-07 16:55 | Emergency (ER) | payer MEDICARE, MEDICAID ==
[~2022-06-07] VITALS: Ht 162.6 cm; Wt 57.6 kg
[2022-06-07 17:56] LABS: Basophils # (auto) 0.1 10 ^3/uL (0-0.2); Basophils % (auto) 0.9 % (0.0-2.0); Eosinophils # (auto) 0.1 10 ^3/uL (0-0.8); Eosinophils % (auto) 1.3 % (0.0-7.0); Hematocrit 42.4 % (36.0-46.0); Lymphocytes # (auto) 2.1 10 ^3/uL (0.4-5.4); Lymphocytes % (auto) 29.5 % (10.0-50.0); Mean Corpuscular Hemoglobin 30.3 pg (28.0-32.0); Mean Corpuscular Hgb Conc. 33.1 g/dL (32.0-36.0); Mean Corpuscular Volume 91.5 fL (80.0-100.0); Monocytes # (auto) 0.6 10 ^3/uL (0-1.3); Monocytes % (auto) 7.6 % (0.0-12.0); Neutrophils # (auto) 4.4 10 ^3/uL (1.6-8.6); Neutrophils % (auto) 60.7 % (37.0-80.0); Nucleated Red Blood Cells % 0.1 %; Red Blood Cells 4.63 10^6/uL (4.0-5.20); Red Cell Distribution Width 12.6 % (11.8-14.3); White Blood Cell 7.2 10^3/uL (4.4-10.8)
[2022-06-07 22:25] VITALS: BP 103/72
== END 2022-06-07 23:16 | disposition home or self-care (01) ==
LOC: ER 16:55
DX: N93.8 Other specified abnormal uterine and vaginal bleeding (principal); R10.2 Pelvic and perineal pain
CPT/HCPCS: 36415; 76856; 84702; 85025